=== PATIENT | female | born 1970 | race Caucasian/White ===

== ENCOUNTER 2017-12-15 06:47 | Emergency (ER) | payer BC ==
[2017-12-15] MEDS ORDERED: traMADol HCl 50 MG TAB ONE (07:58)
--- NOTE | 2017-12-15 08:28 | RAD ---
LEFT WRIST 3 VIEWS: HISTORY: Fall. Pain. Swelling. FINDINGS: Distal radius fracture with minimal displacement. Carpal bones are intact. Radiocarpal and intercar pal joint spaces are preserved. The fracture lucency does appear to extend to the articular surface of the distal radius. IMPRESSION: Distal radius fracture with intraarticular extension. POS: [facility]
== END 2017-12-15 08:39 | disposition home or self-care (01) ==
LOC: ERS 06:47
DX: S52.502A Unspecified fracture of the lower end of left radius, initial encounter for closed fracture (principal); W19.XXXA Unspecified fall, initial encounter
CPT/HCPCS: 25600

== ENCOUNTER 2018-01-09 12:30 | Day surgery (SDC) | payer BC ==
[2018-01-09] MEDS ORDERED: Ondansetron HCl/PF 4 MG/2 ML Vial ONE (14:32)
[2018-01-09] MEDS ORDERED: Dexamethasone 20 MG/5 ML VIAL ONE (14:32)
[2018-01-09] MEDS ORDERED: PROPOFOL 200 MG/20 ML VIAL ONE (14:32)
[2018-01-09] MEDS ORDERED: Lidocaine 1% PF 5 ML VIAL ONE ×2 (14:32→16:58)
[2018-01-09] MEDS ORDERED: CEFAZOLIN/Water 2 GM/20 ML SYRINGE ONE (14:39)
[2018-01-09 14:46] LABS: #Eosinphils 0.2 thou/uL (0.0-0.7); #Lymphocytes 2.2 thou/uL (1.20-3.40); #Monocytes 0.5 thou/uL (0.11-0.59); #Neutrophils 2.6 thou/uL (1.40-6.50); %Basophils 0.8 % (0.0-1.0); %Eosinophils 3.4 % (0.0-10.0); %Lymphocytes 39.3 % (21.0-51.0); %Monocytes 8.5 % (0.0-10.0); Hemoglobin 13.7 g/dL (12.0-16.0); Mean Corpuscular HGB CONC 32.2 g/dL (32.0-36.0); Mean Corpuscular Hemoglobin 31.6 pg (27.0-31.0); Mean Platelet Volume 8.3 fL (7.4-10.4); Platelet Count 261 thou/uL (130-400); RBC Distribution Width 11.2 % (11.5-14.5); Red Blood Cell (RBC) Count 4.33 mill/uL (4.20-5.40); White Blood Cell (WBC) Count 5.5 thou/uL (4.8-10.8)
[2018-01-09] MEDS ORDERED: Fentanyl 100 MCG/2 ML VIAL ONE ×2 (16:35→16:59)
[2018-01-09] MEDS ORDERED: Midazolam HCl 2 mg/2 ml Vial ONE (16:50)
[2018-01-09] MEDS ORDERED: Dexamethasone 4 mg/ml Vial ONE (16:50)
--- NOTE | 2018-01-09 23:12 | RAD ---
THREE VIEWS OF THE LEFT WRIST: 01/09/18 INDICATION: ORIF of left wrist. FINDINGS: Submitted images demonstrate open reduction and internal fixation of the comminuted distal radius fra cture. Fracture alignment is near anatomic. Instrumentation projects in the expected position. Total fluoroscopic time is 82.2 seconds. Total exposure is 1.43 mGy. IMPRESSION: ORIF of left wrist fracture. POS: [facility]
--- NOTE | 2018-01-12 12:27 | OP ---
DATE OF OPERATION: 01/09/2018 PREOPERATIVE DIAGNOSIS: Left distal radius Colles fracture. POSTOPERATIVE DIAGNOSIS: Left distal radius Colles fracture. PROCEDURES PERFORMED: 1. Open reduction of distal radius fracture. 2. Short arm splint. STAFF: Rudolph Arenas M.D. [employer] CONSULTANT: Gonzalez Talley PA-C ANESTHESIA: Dr. Reyes. The patient received a LMA with a supraclavicular. ESTIMATED BLOOD LOSS: 20 mL. TOURNIQUET TIME: 58 minutes at 250 mmHg. ANTIBIOTICS: Ancef 2 grams. IMPLANTS: A [employer] variable angle narrow distal radius plate 4-hole distally during the shaft. The patient had four 2.4 screws, one 2.4 cortical in and out and three 2/7 cortical screws. COMPLICATIONS: None. HISTORY OF PRESENT ILLNESS: Ms. Pemberton is a 47-year-old right hand dominant female. She is a josh se. The patient just moved here from the [place] area. She was working out on the when she fel l. The patient was seen in the clinic and noted to have maintained neutral alignment with some dorsa l comminution. The patient had a cast placed with a mold to help keep maintaining the reduction. Sh kane could not tolerate the cast; therefore switched to a more straightened cast which the patient was p laced and she was from my clinic today and also noted that she had lost her volar tilt of a neutral t ilt and fallen about 20 degrees of dorsal tilt. I discussed with her at this point either she could stay in the same position or undergoing operative fixation to help with improvement of her alignment. The patient desired for operative fixation of her wrist. She understood that I may have to take do wn a portion of the callus that was formed. The patient understood the risks and benefits of surgery to include pain, scar, bleeding, infection, damage to vital structures, nerves, arteries, tendons, n eed for further surgeries or ST tendon rupture, loss of life or limb. The patient understood that pl ate would stay in for life and would undergo the operative fixation to help with maintaining the vola r tilt. The patient understood these risks and benefits and elected to proceed. PROCEDURE IN DETAIL: Time out was performed designating the patient's left upper extremity as the op erative site based on site, consents and markings. After the timeout, the patient's upper extremity was prepped and draped in sterile fashion. I made an incision directly down on top of the patient's FCR. We pulled it ulnarly went down through the fascia, came down the patient's pronator quadratus, used cautery to come down onto the bone in line keeping the radial artery out of the way, coming down using a [place] elevator and a wood handled elevator to elevate the soft tissue of the bone. We came down to the fracture site which was healed. We used a small osteotome to break the fracture site to help with elevation and realignment. I also used a [place] elevator to help with positioning of our fr acture fragment distally. For completion of the freeing up, we chose first a wider 4-hole plate and went to near bur hole plate which we put into position. We freed and reduced the fracture into posit ion, we placed a single toggle screw into the shaft ensuring plate was on bone. We then placed four screws into the distal shaft into distal fragment. We placed two K-wires to ensure that they are out of position. We placed one 2.4 nonlocking screw to help compress the plate to the bone. We then re moved one of the K-wires sequentially and moved ulnarly then the radial styloid and refilled our nonl ocking screw with a 2.4 locking screw then did our ulnar most anterior screw internal screw. We then moved proximally and placed our last 2.7 cortical screw, 12 mm x2, 12 mm. We did AP lateral, ulnar deviated views and PA views and showed that the screws were out of the joint. We worked on range of motion. The patient had an improved tilt back to about maybe neutral to 5-degree dorsal tilt instead of 20. We liked the overall alignment and I washed. We closed a little bit of the plantar quadratu s with 2-0 Vicryl, closed subcu with 2-0 Vicryl stitches and closed with 3-0 nylon horizontal mattres s sutures. We placed soft tissue dressing, was placed in a splint in position, tourniquet time was 5 8 minutes. The patient will be discharged home with pain medications, elevation and sling as needed. The patient will follow up in my clinic. The patient will follow up me in about 10-14 days. We wi ll transition to a Velcro wrist splint.
== END 2018-01-09 19:56 | disposition home or self-care (01) ==
LOC: SDC 12:30
PROVIDERS: ATTEND Orthopaedic Surgery
PROC: 0PSJ04Z Reposition Left Radius with Internal Fixation Device, Open Approach (ICD-10-PCS; principal; 2018-01-09)
DX: S52.532A Colles' fracture of left radius, initial encounter for closed fracture (principal); M19.90 Unspecified osteoarthritis, unspecified site
CPT/HCPCS: 76001; 85025; C1713; J1100; J1642; J2001; J2250; J2405; J2704; J3010